=== PATIENT | female | born 1995 | race Hispanic/Latino ===

== ENCOUNTER 2018-03-02 23:07 | Emergency (ER) | payer OTHER ==
[2018-03-02 23:14] VITALS: TEMP 98.1; O2SAT 100
--- NOTE | 2018-03-02 23:51 | ED PDOC ---
HPI: Psych/Substance Abuse Time Seen by Provider: 03/02/18 23:10 Chief Complaint (Nursing): Alcohol Ingestion Chief Complaint (Provider): etoh History Per: Patient, EMS Additional Complaint(s): 23 y/o female brought in by EMS for public intoxication. Patient was sleeping on a locked train, has dirt/soot on her. Patient awake, combative. Gait unsteady, speech slurred. HPI limited due to patients current state. Past Medical History Reviewed: Historical Data, Nursing Documentation, Vital Signs Vital Signs: Last Vital Signs Temp 98.1 F 03/02/18 23:08 Pulse 118 H 03/02/18 23:08 Resp 19 03/02/18 23:08 BP 153/100 H 03/02/18 23:08 Pulse Ox 100 03/02/18 23:08 - Medical History PMH: No Chronic Diseases - Surgical History Surgical History: No Surg Hx - Family History Family History: States: No Known Family Hx - Allergies Allergies/Adverse Reactions: Allergies Allergy/AdvReac Type Severity Reaction Status Date / Time No Known Allergies Allergy Verified 03/02/18 23:11 Review of Systems ROS Statement: Except As Marked, All Systems Reviewed And Found Negative Physical Exam - Reviewed Nursing Documentation Reviewed: Yes Vital Signs Reviewed: Yes - Physical Exam Appears: Positive for: Well, Non-toxic, No Acute Distress Head Exam: Positive for: ATRAUMATIC, NORMAL INSPECTION, NORMOCEPHALIC Skin: Positive for: Normal Color Eye Exam: Positive for: Normal appearance ENT: Positive for: Normal ENT Inspection Cardiovascular/Chest: Positive for: Regular Rate, Rhythm Respiratory: Positive for: Normal Breath Sounds Gastrointestinal/Abdominal: Positive for: Normal Exam Back: Positive for: Normal Inspection Extremity: Positive for: Normal ROM Neurologic/Psych: Positive for: Alert, Oriented - ECG O2 Sat by Pulse Oximetry: 100 - Progress ED Course And Treament: accuchec, alcohol level 00:00 Patient awake, placed on 1:1 for flight risk 1:30 Patient sleeping; no distress 3:00 Patient sleeping; no distress 4:30 Patient awake, alert, oriented x3. Ambulating steady gait Stable for discharge Disposition - Clinical Impression Clinical Impression: Acute alcohol intoxication - Patient ED Disposition Is Patient to be Admitted: No Counseled Patient/Family Regarding: Studies Performed, Diagnosis, Need For Followup - Disposition Disposition: Routine/Home Disposition Time: 04:26 Condition: STABLE Instructions: Alcohol Use - When Is Drinking a Problem?
[2018-03-03 04:44] VITALS: BP 126/77; PULSE 79; RESP 17
== END 2018-03-03 04:35 | disposition home or self-care (01) ==
LOC: EDBD → H.ER 23:07 → MERGE 23:07 → H.ER 03-03 04:35
DX: F10.129 Alcohol abuse with intoxication, unspecified (principal)